=== PATIENT | female | born 1965 | race American Indian/Alaskan Native ===

== ENCOUNTER 2018-11-19 10:29 | Emergency (ER) | payer OTHER, MEDICARE ==
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
[2018-11-19] MEDS ORDERED: TORADOL IM ONE (13:00)
[2018-11-19] MEDS ORDERED: FLEXERIL PO ONE (13:00)
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
[2018-11-19 14:19] VITALS: BP 138/92
== END 2018-11-19 14:17 | disposition home or self-care (01) ==
LOC: ED 10:29
DX: M54.5 Low back pain (principal); M54.2 Cervicalgia; M25.512 Pain in left shoulder; M25.511 Pain in right shoulder; J45.909 Unspecified asthma, uncomplicated; V49.49XA Driver injured in collision with other motor vehicles in traffic accident, initial encounter; Y93.89 Activity, other specified; Y92.410 Unspecified street and highway as the place of occurrence of the external cause; Y99.8 Other external cause status
CPT/HCPCS: 96372; 99282; J1885